=== PATIENT | female | born 1965 | race Caucasian/White ===

== ENCOUNTER 2019-05-31 09:02 | Day surgery (SDC) | payer BC ==
[2019-05-28 11:17] VITALS: BMI 23.9
[~2019-05-31 09:02] MED LIST: LACTATED RINGERS 1,000 ML IV SCH
--- NOTE | 2019-05-31 09:49 | P.GSHP ---
History of Present Illness H&P Date: 05/31/19 Chief Complaint: GERD, screening colonoscopy 54-year-old female who presents today for EGD and screening colonoscopy. She has had issues with GERD. Past Medical History Past Medical History: GERD/Reflux, Hypertension, Osteoarthritis (OA), Thyroid Disorder Additional Past Medical History / Comment(s): Constipation, hiatal hernia. Recent problems with food getting stuck in esophagus and vomiting. History of Any Multi-Drug Resistant Organisms: None Reported Past Surgical History: Cholecystectomy, Tubal Ligation, Uterine Ablation Additional Past Surgical History / Comment(s): Cyst removed from kidney. Past Anesthesia/Blood Transfusion Reactions: Postoperative Nausea & Vomiting (PONV) Additional Past Anesthesia/Blood Transfusion Reaction / Comment(s): Mom and brother PONV. Past Psychological History: No Psychological Hx Reported Smoking Status: Former smoker Past Alcohol Use History: Occasional Additional Past Alcohol Use History / Comment(s): Quit smoking 2 yrs ago, smoked on and off, last time smoked for 5 yrs before quitting. Past Drug Use History: None Reported - Past Family History Mother Family Medical History: No Reported History Medications and Allergies Home Medications Medication Instructions Recorded Confirmed Type Benazepril HCl 40 mg PO QAM 05/28/19 05/31/19 History Cholecalciferol [Vitamin D3 (25 6,000 unit PO DAILY 05/28/19 05/31/19 History Mcg = 1000 Iu)] Meloxicam 15 mg PO DAILY 05/28/19 05/31/19 History Multivitamins, Thera [Multivitamin 1 tab PO DAILY 05/28/19 05/31/19 History (formulary)] Thyroid,Pork [[place] Thyroid] 60 mg PO QAM 05/28/19 05/31/19 History Allergies Allergy/AdvReac Type Severity Reaction Status Date / Time latex Allergy Rash/Hives Verified 05/31/19 09:39 Penicillins Allergy Anaphylaxis Verified 05/31/19 09:39 Surgical - Exam - General well developed, well nourished, no distress - Eyes PERRL - ENT normal pinna - Neck no masses - Respiratory normal expansion - Cardiovascular Rhythm: regular - Abdomen Abdomen: soft, non tender Assessment and Plan Assessment: GERD we'll perform EGD. We'll also perform screening colonoscopy.
[2019-05-31] MEDS ORDERED: DEXAMETHASONE SOD PHOSPHATE 10 MG/ML 1 ML VIAL IV ONE (09:50)
[2019-05-31] MEDS ORDERED: SCOPOLAMINE 1.5MG/72HR PATCH TRANSDERM ONE (09:50)
[2019-05-31] MEDS ORDERED: ONDANSETRON 4 MG/2 ML VIAL IVP ONE (09:50)
[2019-05-31] MEDS ORDERED: LIDOCAINE 1% 20 ML VIAL (10MG/ML) FOR IV START INTRADERMA ONE (09:55)
[2019-05-31] MEDS ORDERED: LIDOCAINE 1% INJ 10MG/ML (20 ML MDV) ONE (09:55)
[2019-05-31] MEDS ORDERED: PROPOFOL 10 MG/ML 20 ML VIAL IV ONE (09:55)
[2019-05-31 09:58] VITALS: TEMP 98
[2019-05-31 10:38] VITALS: RESP 16
[2019-05-31 11:10] VITALS: BP 125/81; PULSE 60
--- NOTE | 2019-05-31 11:40 | P.OP ---
Date of Procedure: 05/31/19 Preoperative Diagnosis: Dysphagia, screening colonoscopy Postoperative Diagnosis: Gastritis Mild esophagitis Normal colon Procedure(s) Performed: EGD Colonoscopy Anesthesia: MAC Surgeon: Johnathon Griffith Pathology: other (Antral, esophagus) Condition: stable Disposition: PACU Description of Procedure: Placed on the endoscopy table lateral position. She received IV suture. The gastro-placed oropharynx and passed into the esophagus and into the stomach. Scope was then placed through the pylorus. The first and second portion of the duodenum appeared normal. Scope was then brought back the antrum and this was mildly inflamed. A biopsies performed. The scope was then retroflexed and the remainder of the stomach appeared normal. There is no significant hiatal hernia seen. The GE junction was at 40 cm. The distal esophagus was minimal inflamed a biopsies performed. The proximal esophagus appeared normal. Scope was withdrawn for patient. Next digital rectal exam was performed which revealed no abnormalities. The flexible colonoscope was then placed patient anus and passed throughout the entire colon. The ileocecal valve was visually's. The cecum, ascending and transverse colon appeared normal. The descending and; appeared normal. Scope was then brought back the rectum and small. Scope was withdrawn for patient. Patient was scheduled for and esophagram upper GI to evaluate her dysphagia.
== END 2019-05-31 11:27 | disposition home or self-care (01) ==
LOC: ORWHC2ENDO 09:02
PROVIDERS: ATTEND Surgery
DX: Z12.11 Encounter for screening for malignant neoplasm of colon (principal); K21.0 Gastro-esophageal reflux disease with esophagitis; K29.50 Unspecified chronic gastritis without bleeding; K44.9 Diaphragmatic hernia without obstruction or gangrene; I10 Essential (primary) hypertension; E07.9 Disorder of thyroid, unspecified; M19.90 Unspecified osteoarthritis, unspecified site; Z91.040 Latex allergy status; Z88.0 Allergy status to penicillin; Z87.891 Personal history of nicotine dependence; Z79.890 Hormone replacement therapy; Z79.899 Other long term (current) drug therapy; Z98.51 Tubal ligation status; Z90.49 Acquired absence of other specified parts of digestive tract; Z98.890 Other specified postprocedural states
CPT/HCPCS: 43239; 88305; G0121; J1100; J2405; J2001; J2704; 45378

== ENCOUNTER → 2019-06-03 | Outpatient (CLI) | payer BC ==
--- NOTE | 2019-06-03 10:58 | FL ---
EXAMINATION TYPE: FL UGI w esophagus DATE OF EXAM: 06/03/2019 COMPARISON: NONE HISTORY: Dysphagia, vomiting, difficulty swallowing solid foods. TECHNIQUE: A single contrast UGI study is performed with Isovue given the recent biopsy. 1 minute an d 26 seconds of fluoroscopy was utilized with 39 fluoroscopic images saved. FINDINGS: Peripatologist image of the abdomen shows no gross abnormality. The esophagus shows normal motility and emptying into the stomach. No evidence of hiatal hernia or s tricture noted. The stomach shows normal distensibility and peristalsis with thickened gastric rugal folds in the ant rum and pylorus. No evidence of any mass or ulcer disease. Very minimal gastroesophageal reflux was seen during real time performance of this study. The duodenal bulb, sweep, and proximal small bowel loops are unremarkable. IMPRESSION: Mildly thickened gastric antrum and pyloric rugal folds most commonly related to mild gas tritis. No hiatal hernia or stricture seen. Very minimal gastroesophageal reflux.
== END | disposition home or self-care (01) ==
LOC: RADUSWWP 09:02
PROVIDERS: ATTEND Surgery
DX: K21.9 Gastro-esophageal reflux disease without esophagitis (principal)
CPT/HCPCS: 74240

== ENCOUNTER → 2020-03-17 | Outpatient (CLI) | payer BC ==
--- NOTE | 2020-03-17 22:25 | MR ---
EXAMINATION TYPE: MR lumbar spine wo/w con DATE OF EXAM: 03/17/2020 COMPARISON: NONE HISTORY: Sharp shooting pain in left hip and leg x5 weeks, xrays at [facility] TECHNIQUE: Multiplanar, multisequence images of the lumbar spine is performed without and with IV contrast, util izing 7 mL intravenous Gadavist FINDINGS: There is levoconvex scoliosis centered at L2-L3 level. Sagittal images of the lumbar spine show vertebral body heights and alignment to appear satisfactory. Multilevel disc desiccation with mi ld disc space narrowing L3-L4 level and L5-S1 level. The conus medullaris is normal in position and signal ending mid to inferior L1 level. 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 Small hemangioma involving L4 vertebra sagittal image 11. No suspicious postcontrast enhancemen t. Axial images show T12-L1 and L1-L2 levels to appear within normal limits. Axial images at L2-L3 level show mild facet arthropathy bilaterally. Axial images at L3-L4 level show mild/moderate facet degenerative changes and ligamentum flavum hyper trophy mildly effacing posterior lateral thecal sac. There is mild broad disc bulge mildly effaces th e anterior thecal sac. Patent bilateral neural foramina. Axial images at the L4-L5 level show moderate facet degenerative changes. There is mild broad-based p osterior disc protrusion. Patent bilateral neural foramina. Axial images at L5-S1 level show [id number] facet degenerative changes bilaterally. There is br oad-based central disc protrusion. Spinal canal is preserved. Mild left-sided neural foraminal narrow ing due to asymmetric increased facet arthropathy on the left. Paraspinal muscle bulk is maintained. There are few subcentimeter round T2 hyperintense lesions scatt ered throughout upper pole level both kidneys consistent with thin-walled cysts without enhancement. IMPRESSION: Scoliosis. Multilevel degenerative changes in the lumbar spine as detailed above. No larg e disc herniation to account for patient's left-sided radiculopathy type symptoms however.
== END | disposition home or self-care (01) ==
LOC: RADMRIMAIN 20:09
PROVIDERS: ATTEND Nurse Practitioner Adult Health
DX: M41.86 Other forms of scoliosis, lumbar region (principal); M47.816 Spondylosis without myelopathy or radiculopathy, lumbar region
CPT/HCPCS: 72158; A9585

== ENCOUNTER 2020-05-02 11:22 | Day surgery (SDC) | payer BC ==
[2020-04-25 16:04] VITALS: BMI 25.5
[2020-05-02 11:49] VITALS: TEMP 97.7
[2020-05-02] MEDS ORDERED: fentaNYL (PF) 50 MCG/ML 2 ML AMP ONE (12:39)
[2020-05-02] MEDS ORDERED: methylPREDNISolone ACETATE 40 MG/ML 1 ML VIAL ONE (12:39)
[2020-05-02] MEDS ORDERED: MIDAZOLAM 2 MG/2 ML VIAL ONE (12:39)
[2020-05-02] MEDS ORDERED: IOPAMIDOL M200 10 ML VIAL ONE (12:39)
[2020-05-02] MEDS ORDERED: ROPIVACAINE 5MG/ML 20ML VIAL ONE (12:39)
[2020-05-02] MEDS ORDERED: IV FLUID CONTINUATION 900 ML IV ONE (12:55)
[2020-05-02 12:59] VITALS: RESP 16
--- NOTE | 2020-05-02 13:08 | P.PCN ---
Date of Procedure: 05/02/20 Procedure(s) Performed: Description of Procedure: PREOPERATIVE DIAGNOSIS:Left hip arthralgia POSTOPERATIVE DIAGNOSIS: same PROCEDURES: left intra-articular hip injection with fluoroscopy (fluoroscopy images available in the radiology Department ) ANESTHESIA: Moderate sedation with versed 2 mg fentanyl 50 mcg EBL: Minimal PROCEDURE INDICATION: The patient with left hip pain secondary , who has been unresponsive to conservative therapy. PROCEDURE DESCRIPTION / TECHNIQUE: The patient was seen and identified in the preoperative area. Risks, benefits, complications, and alternatives were discussed with the patient (including but not limited to incomplete pain relief, bleeding, infection, nerve damage, and allergies to medications), the patient agreed to proceed with the procedure and signed the consent after all questions were answered. Patient was taken to the OR and time out was completed ,, patient placed in supine position and allergies. Pt was placed in the prone position. IV was started. Vital signs remained stable throughout the procedure. The left hip area area was prepped and draped in the usual sterile fashion. Vital signs were closely monitored during the procedure. Conscious sedation was used during the procedure to decrease patients anxiety. Using AP fluoroscopy, the femoral neck was identified, marked, and localized with 1% lidocaine. Subsequently, a 25 gauge 5-inch spinal needle was advanced guided by fluoroscopy to the 10 o'clock position on the femoral neck until the needle was felt entering the hip capsule. Placement confirmed with injection of Isovue, contrast was injected to demonstrate an arthrogram. After negative aspiration for CSF or heme and in the absence of paresthesias, the full 6 ml ml of the block solution containing Depo-Medrol 40 mg and 5 mL of preservative-free 0.5% ropivacaine was injected. At the end of the procedure, the skin was cleansed and bandages were applied. COMPLICATIONS: No acute complications.
[2020-05-02 13:16] VITALS: BP 123/81; PULSE 74
--- NOTE | 2020-05-02 15:48 | FL ---
EXAMINATION TYPE: FL guided pain mgmt statistic DATE OF EXAM: 05/02/2020 CLINICAL HISTORY: Left hip pain. TECHNIQUE: Fluoroscopy. COMPARISON: None. FINDINGS: Fluoroscopic guidance was provided during pain relief procedure performed by Dr. Slater . A total of 7 seconds of fluoroscopic time was utilized during the procedure and two spot images ar e acquired. Images acquired shows needle localization towards the left hip joint from inferior later al approach. IMPRESSION: As Above.
== END 2020-05-02 13:34 | disposition home or self-care (01) ==
LOC: ORPAIN 11:22
PROVIDERS: ATTEND Specialist
DX: M25.552 Pain in left hip (principal); M51.36 Other intervertebral disc degeneration, lumbar region; M47.816 Spondylosis without myelopathy or radiculopathy, lumbar region; Z88.0 Allergy status to penicillin; Z91.040 Latex allergy status; Z98.51 Tubal ligation status
CPT/HCPCS: 20610; J2250; J1030; J3010; Q9966; J2795; 99152

== ENCOUNTER → 2020-06-06 | Outpatient (CLI) | payer BC ==
--- NOTE | 2020-06-06 16:43 | MR ---
EXAMINATION TYPE: MR hip LT wo con DATE OF EXAM: 06/06/2020 COMPARISON: No radiographic correlation is available HISTORY: 55-year-old female with left hip pain, limited movement TECHNIQUE: Multiplanar, multisequence images of the left hip were obtained without IV contrast. FINDINGS: There is end-stage degenerative change of the left greater than right hips. Complete loss of superola teral cartilage and joint space particularly on the left with subchondral geode measuring up to 1.2 c m on the right and extensive marrow edema on both sides of the joint. The left hip labrum is diffusely degenerative and torn with a 3.5 x 1.5 cm paralabral cyst. Small to moderate effusion on the left and physiologic joint fluid on the right. The sacrum and SI joints as well as the pubic symphysis appear intact. No hip fracture or AVN is identified. There is focal marrow edema and adjacent soft tissue swelling at the left anterior inferior iliac spi ne without partial tear involving the origin of the left rectus femoris. Fluid along the proximal tiny tendinous junction and there is some reactive edema within the visualized upper thigh muscle belly. There is some mild edema within the distal left iliopsoas muscle that could represent a mild muscle s train or edema reactive to altered biomechanics. Hamstrings origins and gluteal insertions appear intact. Symmetric course, caliber, and signal intensity of the sciatic nerves. Sigmoid diverticulosis. Uterus is visualized. IMPRESSION: 1. End stage osteoarthrosis of the left greater than right hips with areas of reactive subchondral ma rrow edema. Small to moderate joint effusion on the left likely reactive. The acetabular labrum is al so diffusely degenerative and torn with a 2.5 x 1.5 cm superior paralabral cyst on the left. 2. Note a significant partial tear of the left rectus femoris origin. There is reactive marrow edema at the AIIS, some fluid delaminating along its myotendinous junction, and reactive marrow edema of th e proximal muscle belly in the upper thigh.
== END | disposition home or self-care (01) ==
LOC: RADMRIMAIN 14:04
PROVIDERS: ATTEND Orthopaedic Surgery
DX: M16.0 Bilateral primary osteoarthritis of hip (principal); M25.852 Other specified joint disorders, left hip; S73.102A Unspecified sprain of left hip, initial encounter; S73.192A Other sprain of left hip, initial encounter

== ENCOUNTER → 2020-07-11 | Outpatient (CLI) | payer BC | END | disposition home or self-care (01) | LOC: LABWHC1 10:40 | PROVIDERS: ATTEND Orthopaedic Surgery | DX: Z01.812 Encounter for preprocedural laboratory examination (principal) | CPT/HCPCS: 87070 ==

== ENCOUNTER → 2020-07-28 | Outpatient (CLI) | payer BC ==
[2020-07-28 11:52] LABS: Appearance,Urine Clear (Clear); Bilirubin,Urine Negative (Negative); Blood,Urine Negative (Negative); Color,Urine Light Yellow; Glucose,Urine (UA) Negative (Negative); HCT 43.2 % (34.0-46.0); HGB 14.9 gm/dL (11.4-16.0); Ketones,Urine Negative (Negative); Leukocyte Esterase,Urine Negative (Negative); MCH 33.2 pg (25.0-35.0); MCHC 34.6 g/dL (31.0-37.0); MCV 95.9 fL (80.0-100.0); Mean Platelet Volume 6.9; Nitrite,Urine Negative (Negative); PH, Urine 5.5 (5.0-8.0); Platelet Count 297 k/uL (150-450); Protein,Urine Negative (Negative); RDW 11.7 % (11.5-15.5); Specific Gravity,Urine 1.002 (1.001-1.035); Urobilinogen,Urine <2.0 mg/dL (<2.0); WBC 5.9 k/uL (3.8-10.6)
[2020-07-28 12:08] LABS: African American GFR (CKD) >90 (>60 ml/min/1.73 sqM); Anion Gap 5 mmol/L; Blood Urea Nitrogen 19 mg/dL (7-17); Carbon Dioxide 28 mmol/L (22-30); Chloride 104 mmol/L (98-107); Glucose 86 mg/dL (74-99); Potassium 4.5 mmol/L (3.5-5.1); Sodium 137 mmol/L (137-145)
[2020-07-28 12:09] LABS: ALT 16 U/L (4-34); AST 26 U/L (14-36); Albumin 4.4 g/dL (3.5-5.0); Alkaline Phosphatase 55 U/L (38-126); Calcium 9.7 mg/dL (8.4-10.2); Non-African American GFR(CKD) >90 (>60 ml/min/1.73 sqM); Total Bilirubin 0.5 mg/dL (0.2-1.3); Total Protein 6.9 g/dL (6.3-8.2)
[2020-07-28 12:13] LABS: INR 0.9 (<1.2); Partial Thromboplastin Time 23.2 sec (22.0-30.0); Prothrombin Time 9.8 sec (9.0-12.0)
== END | disposition home or self-care (01) ==
LOC: LABPAT 11:05
PROVIDERS: ATTEND Orthopaedic Surgery
DX: Z01.818 Encounter for other preprocedural examination (principal); M16.12 Unilateral primary osteoarthritis, left hip
CPT/HCPCS: 36415; 80053; 81003; 85027; 85610; 85730; 86850; 86900; 86901

== ENCOUNTER 2020-08-07 07:42 | Observation (INO) | payer BC ==
[2020-07-31 11:51] VITALS: BMI 25.7
[~2020-08-07 07:42] MED LIST changes: +ACETAMINOPHEN TAB 500 MG TAB PO PRN; +GABAPENTIN 300 MG CAP PO PRN; +HYDROmorphone 0.5 MG/0.5 ML SYRINGE IVP PRN; -LACTATED RINGERS 1,000 ML IV SCH; +LIDOCAINE 1% (10MG/ML) FOR IV START INTRADERMA PRN; +MELOXICAM 7.5 MG TAB PO PRN; +TRANEXAMIC ACID 1,000 MG in SODIUM CHLORIDE 0.9% 100 ML IVPB PRN; +VANCOMYCIN 1,250 MG in SODIUM CHLORIDE 0.9% 250 ML IVPB PRN
[2020-08-07] MEDS ORDERED: ONDANSETRON 4 MG/2 ML VIAL ONE (08:12)
[2020-08-07] MEDS: LACTATED RINGERS 1,000 ML IV SCH (08:21)
[2020-08-07] MEDS ORDERED: DEXAMETHASONE SOD PHOSPHATE 4 MG/ML 1 ML VIAL IV ONE (08:22)
[2020-08-07] MEDS ORDERED: HYDROmorphone 1 MG/ML 1 ML SYRINGE IVP PRN (08:33)
[2020-08-07] MEDS ORDERED: MAGNESIUM HYDROXIDE 2,400 MG/10 ML CUP PO PRN (08:33)
[2020-08-07] MEDS ORDERED: hydrOXYzine pamoate 25 MG CAP PO PRN (08:33)
[2020-08-07] MEDS ORDERED: NALOXONE 0.4 MG/ML 1 ML VIAL IV PRN (08:33)
[2020-08-07] MEDS ORDERED: ONDANSETRON 4 MG/2 ML VIAL IVP PRN (08:33)
[2020-08-07] MEDS ORDERED: diazePAM 5 MG TAB PO PRN (08:33)
[2020-08-07] MEDS ORDERED: HYDROmorphone 0.5 MG/0.5 ML SYRINGE IVP PRN (08:33)
[2020-08-07] MEDS ORDERED: HYDROmorphone 0.2 MG/1 ML SYRINGE IVP PRN (08:33)
[2020-08-07] MEDS ORDERED: HYDROcodone/APAP 7.5-325MG 1 EACH TAB PO PRN (08:38)
[2020-08-07] MEDS ORDERED: HEPARIN SODIUM,PORCINE 10,000 UNIT/ML 1 ML VIAL ONE (08:50)
[2020-08-07] MEDS ORDERED: SODIUM CHLORIDE 0.9% IRRIG 1,000 ML BTL IRRIGATION ONE (08:50)
[2020-08-07] MEDS: ROPIVACAINE/EPI/CLONIDINE/KET 50 ML SYRINGE MISCELLANE PRN ×2 (09:14→09:56)
--- NOTE | 2020-08-07 10:03 | P.OP ---
Date of Procedure: 08/07/20 Preoperative Diagnosis: Severe osteoarthritis left hip Postoperative Diagnosis: Severe osteoarthritis left hip Procedure(s) Performed: Left total hip arthroplasty with a direct anterior approach Implants: [employer] Polarstem standard size 2 [employer] R3, 3 hole hemispherical acetabular shell, 48 mm [employer] Reflection 6.5 mm cancellus screw, 20 mm, 25 mm [employer] R3, XLPE 20 acetabular liner [employer] Oxinium femoral head 32 m, +4 All components were press-fit. The articulation is Oxinium on polyethylene. Anesthesia: spinal Surgeon: Fred Villarreal Credit Charge Authorizer #1: Arabella Archuleta Estimated Blood Loss (ml): 180 (70 mL returned with Cell Saver) Pathology: other (Femoral head) Condition: stable Disposition: PACU Indications for Procedure: After failure of conservative treatment we discussed the surgical and nonsurgical treatment options at length. Patient wishes to proceed with a total hip arthroplasty with a direct anterior approach. Complications specific to this procedure were discussed at length, including but not limited to infection, leg length discrepancy, dislocation, nerve injury, and fracture. Covid-19 was also discussed at length with the patient, and they are aware of the current policies and procedures. The patient was given the option of delaying surgery, but they elect to proceed knowing these risks. Patient is aware of all these complications and informed consent was obtained Operative Findings: The operative findings are consistent with severe osteoarthritis of the left hip Description of Procedure: Patient was seen and evaluated in the preoperative area and the consent was reviewed. The operative site was marked with a skin marker. The patient was then brought to the operating room and given preoperative antibiotics intravenously. 1 g of Tranexamic acid was also given intravenously. A spinal anesthetic was administered by the anesthesia department. The patient was then placed on the Norco table with the bony prominences well-padded. The hip area was then prepped with a ChloraPrep solution and draped in the usual sterile fashion. A universal timeout was then performed, which confirmed the patient's name, surgical site, ALLERGIES, and procedure being performed on the consent. Next the incision site was located at 1 cm distal to the anterior superior iliac spine along the flexion crease of the hip. The skin and subcutaneous tissues were sharply incised. Incision was carefully dissected down to the fascia overlying the tensor fascia rey muscle. This fascia was then incised in line with the incision. Care was taken to stay laterally in order to avoid injuring the lateral femoral cutaneous nerve. Next, using blunt finger dissection, the tensor fascia rey muscle was dissected off its investing fascia. The muscle was then carefully retracted laterally with a cobra retractor over the lateral neck of the femur. Next, the circumflex vessels were identified and cauterized using the AquaMantis device. The anterior hip capsule was then exposed. The capsule was then opened and an inverted T fashion. Cobra retractors were then placed intracapsularly. The retractors were maintained intracapsular throughout the procedure. The proximal femur was then visualized. A small amount of traction was placed on the leg. The femoral neck was then osteotomized appropriate level above the lesser trochanter. A small wedge of bone was then removed from the remaining femoral head. Next, using a corkscrew the femoral head was removed from the acetabulum. On gross visual inspection, the femoral head had complete loss of articular cartilage and multiple periarticular osteophytes. The femoral head was then measured. Attention was then turned to the acetabulum. The acetabulum was exposed and any remaining labrum was excised. Sequential reaming of the acetabulum was performed using fluoroscopic guidance until there was a good bed of bleeding cancellus bone. When the appropriate size was reached, a trial was then placed. The position and fit of the trial was checked with fluoroscopy. The trial was then removed. Then, using fluoroscopic guidanc e, the final implant was impacted at 20 of anteversion and 40 of abduction, and fully seated in the acetabulum. 2 screws were then placed in the acetabulum. Again fluoroscopy was used to check position of the screws. Next, the liner was then impacted, with a 20 elevated liner located in the anterior superior quadrant. Component locking was confirmed. Attention was then directed to the femur. With the aid of the Norco table, the femur was externally rotated to approximately 130, extended, and adducted under the opposite leg. A side hook was then placed under the proximal femur, and the side hook elevator was used to elevate the proximal femur while releasing the capsule. Retractors were then placed. A capsular release was performed, as well as a release of the conjoined tendon, which afforded excellent visualization of the proximal femur. Next, a box osteotome was used to lateralize the proximal femur. A assistant merchandiser was then used to locate the femoral canal. Sequential broaching was then performed with appropriate size which afforded excellent fixation in the proximal femur. A trial was then placed with appropriate head and neck, and the hip was gently reduced with the aid of the Norco table. Fluoroscopy was then used to check position of the components, as well as to ensure equal leg lengths. The hip was then gently dislocated and the trials were then removed. Final implants were then impacted and the hip was again reduced. Final fluoroscopic x-rays confirmed that the components were in anatomic position, as well as equal leg lengths. The hip was also taken through range of motion, and found to be stable. The hip was then copiously irrigated with antibiotic solution with pulsatile lavage. The hip was then irrigated with Irrisept solution. The soft tissues were then injected with a ropivacaine solution, which consisted of 246.25 mg of ropivacaine, 0.5 mg of epinephrine, 30 mg of Toradol, 80 g of clonidine, and 48.45 mL of sterile water, for a total of 100 mL of fluid injected. A second dose of 1 g of Tranexamic acid was also given intravenously. Any blood collected by Cell Saver was then returned to the patient at this time. The fascia was then closed with 2-0 strata fix suture. The subcutaneous tissue was closed with 3-0 Vicryl. The subcuticular tissue was closed with 3-0 strata fix suture. The skin was then closed with Exofin skin glue. After the glue and dried, and Optifoam silver impregnated dressing was applied. The patient was then transferred to the recovery room in stable condition. The commercial escrow assistant LALO Webb was required due to the complexity of surgery, and the need for skilled surgical oncologist for positioning, draping, exposure, retraction, and closure of the wound.
--- NOTE | 2020-08-07 11:18 | XR ---
EXAMINATION TYPE: XR Hip Limited LT DATE OF EXAM: 08/07/2020 COMPARISON: Correlation MRI 06/06/2020 HISTORY: 55-year-old female status post hip surgery, assess cervical alignment TECHNIQUE: Single portable AP view FINDINGS: Image shows placement of left hip total arthroplasty. Both the acetabular cup and femoral stem compon ents of the prosthesis are well seated without periprosthetic fracture. Alignment grossly anatomic. S ome scattered soft tissue air relates to the recent operation. IMPRESSION: Uncomplicated postoperative appearance left total hip arthroplasty.
--- NOTE | 2020-08-07 11:33 | XR ---
EXAMINATION TYPE: XR Hip Limited LT, FL fluoroscopy <1hr DATE OF EXAM: 08/07/2020 COMPARISON: NONE HISTORY: 55-year-old female anteriorly left hip replacement FINDINGS: 2 intraoperative fluoroscopic images during left hip total arthroplasty. FLUOROSCOPY Fluoroscopy time of 16 seconds was used during left anterior hip replacement. 2 image/s document/ s the procedure. IMPRESSION: Interoperative fluoroscopy as above.
--- NOTE | 2020-08-07 14:22 | P.CONS ---
History of Present Illness - Reason for Consult Consult date: 08/07/20 Medical management - History of Present Illness This is a 55-year-old white female who was admitted to the hospital and had Left total hip arthroplasty with a direct anterior approach. She is postop, she feels okay, no chest pain no abdominal pain no nausea no vomiting no dizziness. Patient's family at bedside. Review of Systems 10 systems reviewed, pertinent positive and negative findings as in HPI. No chest pain no abdominal pain. Past Medical History Past Medical History: GERD/Reflux, Hypertension, Osteoarthritis (OA), Thyroid Disorder Additional Past Medical History / Comment(s): Constipation, hiatal hernia. Recent problems with food getting stuck in esophagus and vomiting,vertigo History of Any Multi-Drug Resistant Organisms: None Reported Past Surgical History: Cholecystectomy, Tubal Ligation, Uterine Ablation Additional Past Surgical History / Comment(s): Cyst removed from kidney. PAIN CLINIC PROCEDURE, COLONOSCOPY/EGD Past Anesthesia/Blood Transfusion Reactions: Motion Sickness, Postoperative Nausea & Vomiting (PONV) Additional Past Anesthesia/Blood Transfusion Reaction / Comm: Mom and brother PONV. pt states "after my upper and lower gi had general anesthetic took 1 week to get it out of system" Smoking Status: Current every day smoker - Past Family History Mother Family Medical History: No Reported History Medications and Allergies Home Medications Medication Instructions Recorded Confirmed Type Benazepril HCl 40 mg PO QAM 05/28/19 07/31/20 History Cholecalciferol [Vitamin D3 (25 6,000 unit PO DAILY 05/28/19 07/31/20 History Mcg = 1000 Iu)] Meloxicam 15 mg PO DAILY 05/28/19 07/31/20 History Multivitamins, Thera [Multivitamin 1 tab PO DAILY 05/28/19 07/31/20 History (formulary)] Thyroid,Pork [[place] Thyroid] 60 mg PO QAM 05/28/19 07/31/20 History traMADol HCL [Ultram] 50 mg PO Q4-6H PRN 07/31/20 07/31/20 History Aspirin 325 mg PO BID #60 tab 08/07/20 Rx HYDROcodone/APAP 7.5-325MG [[place] 1 - 2 tab PO Q6H PRN #32 tab 08/07/20 Rx 7.5-325] Sennosides [Senokot] 2 tab PO DAILY PRN #60 tablet 08/07/20 Rx Allergies Allergy/AdvReac Type Severity Reaction Status Date / Time latex Allergy Rash/Hives Verified 08/07/20 08:02 Penicillins Allergy Anaphylaxis Verified 08/07/20 08:02 Physical Exam Vitals: Vital Signs Temp Pulse Pulse Resp BP Pulse Ox 08/07/20 12:29 81 16 106/66 97 08/07/20 12:00 77 16 101/65 96 08/07/20 11:29 75 16 102/63 93 L 08/07/20 11:14 71 16 112/66 95 08/07/20 10:59 82 16 104/63 95 08/07/20 10:44 79 16 105/65 95 08/07/20 10:30 76 16 119/74 96 08/07/20 10:19 97.4 F L 82 16 117/72 96 08/07/20 08:17 98.6 F 103 H 157/89 95 Intake and Output 08/06/20 08/07/20 08/07/20 22:59 06:59 14:59 Intake Total 1150 Output Total 180 Balance 970 Intake: IV 1150 Output: Estimated Blood Loss 180 Other: Weight 75.1 kg Constitutional: No acute distress, conversant, pleasant Eyes: Anicteric sclerae, moist conjunctiva, no lid-lag, PERRLA ENMT: NC/AT Neck:Supple, FROM, no masses, or JVD Lungs: Clear to auscultation, Clear to percussion, Normal respiratory effort, no accessory muscle use Cardiovascular: Heart regular in rate and rhythm, No murmurs, gallops, or rubs no peripheral edema Abdominal: Soft Nontender, non distended, no guarding, no rebound or rigidity Skin: Normal temperature, tone, texture Extremities:No digital cyanosis No clubbing, Pedal pulses intact and symmetrical Radial pulses intact and symmetrical Normal gait and station, No calf tenderness Psychiatric: Alert and oriented to person, place and time, Appropriate affect Intact judgement Neuro: Cranial nerves II-XII grossly intact. No focal sensory deficits Assessment and Plan Assessment: 1. Left hip pain: Status post Left total hip arthroplasty with a direct anterior approach, orthopnea following. Pain control as indicated. 2. Hypothyroidism: Continue [place] Thyroid 3. Essential hypertension: Continue benazepril 4. Osteoarthritis: Supportive care Thank you for the consultation
[2020-08-07] MEDS: CLINDAMYCIN 900 MG in DEXTROSE 5% IN WATER 50 ML IVPB SCH ×2 (15:43)
[2020-08-07] MEDS: SODIUM CHLORIDE 0.9% 1,000 ML IV SCH (15:51)
[2020-08-07] MEDS: HYDROcodone/APAP 7.5-325MG 1 EACH TAB PO PRN (19:51)
[2020-08-07] MEDS: ASPIRIN 325 MG TAB PO SCH (20:13)
[2020-08-07] MEDS ORDERED: SENNOSIDES-DOCUSATE SODIUM 1 EACH TAB PO SCH (21:00)
[2020-08-08] MEDS: CLINDAMYCIN 900 MG in DEXTROSE 5% IN WATER 50 ML IVPB SCH ×2
[2020-08-08] MEDS: HYDROcodone/APAP 7.5-325MG 1 EACH TAB PO PRN ×2 (04:07→10:16)
[2020-08-08] MEDS: SODIUM CHLORIDE 0.9% 1,000 ML IV SCH (04:08)
[2020-08-08 06:21] VITALS: BP 116/76; PULSE 88; RESP 18; TEMP 97.8
[2020-08-08] MEDS ORDERED: THYROID, PORK 30 MG TAB PO SCH (06:30)
[2020-08-08 07:14] LABS: Basophils % (A) 0 %; Eosinophils # (A) 0.3 k/uL (0-0.7); Eosinophils % (A) 3 %; HCT 33.2 % (34.0-46.0); Lymphocytes # (A) 1.4 k/uL (1.0-4.8); Lymphocytes % (A) 16 %; MCH 33.3 pg (25.0-35.0); MCHC 34.8 g/dL (31.0-37.0); MCV 95.9 fL (80.0-100.0); Mean Platelet Volume 7.2; Monocytes # (A) 0.5 k/uL (0-1.0); Monocytes % (A) 6 %; Neutrophils # (A) 6.3 k/uL (1.3-7.7); Platelet Count 252 k/uL (150-450); RBC 3.46 m/uL (3.80-5.40); RDW 11.8 % (11.5-15.5); WBC 8.5 k/uL (3.8-10.6)
[2020-08-08 07:19] LABS: HGB 11.5 gm/dL (11.4-16.0)
[2020-08-08] MEDS: ASPIRIN 325 MG TAB PO SCH (07:42)
[2020-08-08] MEDS: LACTATED RINGERS 1,000 ML IV SCH (07:44)
[2020-08-08] MEDS ORDERED: MIDAZOLAM 2 MG/2 ML VIAL ONE (08:50)
[2020-08-08] MEDS ORDERED: fentaNYL (PF) 50 MCG/ML 2 ML AMP ONE (08:50)
[2020-08-08] MEDS ORDERED: PROPOFOL 10 MG/ML 20 ML VIAL IV ONE (08:50)
[2020-08-08] MEDS ORDERED: MELOXICAM 7.5 MG TAB PO SCH (09:00)
[2020-08-08] MEDS ORDERED: lisinopriL 20 MG TAB PO SCH (09:00)
--- NOTE | 2020-08-08 09:17 | P.DS ---
Providers Date of admission: 08/07/20 23:11 Expected date of discharge: 08/08/20 Attending physician: Fred Villarreal Consults: 08/07/20 08:33 Consult Physician Routine Consulting Provider: Sonam Logan Consult Reason/Comments: medical management Do you want consulting provider notified?: Yes Primary care physician: Jesus Avina MD - Discharge Diagnosis(es) (1) Osteoarthritis of left hip Current Visit: Yes Status: Acute (2) S/P total hip arthroplasty Current Visit: Yes Status: Acute Hospital Course: This is a 55-year-old female with known history of degenerative arthritis of the left hip. The patient presented for evaluation as an outpatient. After discussion and consideration patient elects to proceed with total hip arthroplasty. The patient is seen preoperatively by Dr. Villarreal and medically cleared for surgery by their primary care physician. Patient is admitted to [facility] on 08/07/2020 for total hip arthroplasty. The procedure is performed without complication or sequelae. The patient is doing well postoperatively. Labs and vital signs are stable on day of discharge. On day of discharge patient's hip incision is healing well. There is minimal erythema. There is no drainage noted at this time. There is minimal soft tissue swelling to the hip and thigh. Patient has full foot and ankle motion without difficulty or pain. Calf is soft and nontender to palpation. Neurovascular status to the left lower extremity is intact. Patient is discharged home in good condition. Opioid start talking form is reviewed and signed. Please see med rec for accurate list of home medications. Plan - Discharge Summary Discharge Rx Participant: Yes New Discharge Prescriptions: New HYDROcodone/APAP 7.5-325MG [[place] 7.5-325] 1 - 2 tab PO Q6H PRN #32 tab PRN Reason: Pain Aspirin 325 mg PO BID #60 tab Sennosides [Senokot] 2 tab PO DAILY PRN #60 tablet PRN Reason: Constipation No Action Cholecalciferol [Vitamin D3 (25 Mcg = 1000 Iu)] 6,000 unit PO DAILY Thyroid,Pork [[place] Thyroid] 60 mg PO QAM Multivitamins, Thera [Multivitamin (formulary)] 1 tab PO DAILY Meloxicam 15 mg PO DAILY Benazepril HCl 40 mg PO QAM traMADol HCL [Ultram] 50 mg PO Q4-6H PRN PRN Reason: Pain Discharge Medication List Benazepril HCl 40 mg PO QAM 05/28/19 [History] Cholecalciferol [Vitamin D3 (25 Mcg = 1000 Iu)] 6,000 unit PO DAILY 05/28/19 [History] Meloxicam 15 mg PO DAILY 05/28/19 [History] Multivitamins, Thera [Multivitamin (formulary)] 1 tab PO DAILY 05/28/19 [History] Thyroid,Pork [[place] Thyroid] 60 mg PO QAM 05/28/19 [History] traMADol HCL [Ultram] 50 mg PO Q4-6H PRN 07/31/20 [History] Aspirin 325 mg PO BID #60 tab 08/07/20 [Rx] HYDROcodone/APAP 7.5-325MG [[place] 7.5-325] 1 - 2 tab PO Q6H PRN #32 tab 08/07/20 [Rx] Sennosides [Senokot] 2 tab PO DAILY PRN #60 tablet 08/07/20 [Rx] Follow up Appointment(s)/Referral(s): [facility], [NON-STAFF] - As Needed Fred Villarreal DO [Doctor of Osteopathic Medicine] - 2 Weeks Activity/Diet/Wound Care/Special Instructions: Weightbearing as tolerated with walker. Leave dressing intact. Dressing may be removed by home care nurse or by patient in 10 days. May shower with dressing on. If the dressing becomes wet, please remove. Please take aspirin 325mg twice daily for 30 days to prevent blood clots. Recommend use of compression stockings daily until follow up to help prevent swelling and blood clots. May remove at night before sleeping. Please follow-up with [facility] in 2 weeks and call with any questions or concerns, . Discharge Disposition: HOME WITH HOME HEALTH SERVICES
--- NOTE | 2020-08-08 11:31 | P.PN ---
Subjective Progress Note Date: 08/08/20 Feels okay, no chest pain or abdominal pain no nausea no vomiting no dizziness, no shortness of breath Objective - Vital Signs Vital signs: Vital Signs Temp 97.8 F 08/08/20 05:30 Pulse 88 08/08/20 05:30 Resp 18 08/08/20 05:30 BP 116/76 08/08/20 05:30 Pulse Ox 95 08/08/20 05:30 Intake & Output 08/07/20 08/08/20 08/08/20 18:59 06:59 18:59 Intake Total 1390 Output Total 180 Balance 1210 Weight 75.1 kg Intake: IV 1150 Oral 240 Output: Estimated Blood Loss 180 Other: Voiding Method Toilet # Voids 1 2 - Exam Constitutional: No acute distress, conversant, pleasant Eyes: Anicteric sclerae, moist conjunctiva, no lid-lag, PERRLA ENMT: NC/AT Neck:Supple, FROM, no masses, or JVD Lungs: Clear to auscultation, Clear to percussion, Normal respiratory effort, no accessory muscle use Cardiovascular: Heart regular in rate and rhythm, No murmurs, gallops, or rubs no peripheral edema Abdominal: Soft Nontender, non distended, no guarding, no rebound or rigidity Skin: Normal temperature, tone, texture Extremities:No digital cyanosis No clubbing Psychiatric: Alert and oriented to person, place and time, Appropriate affect Intact judgement Neuro: Cranial nerves II-XII grossly intact. No focal sensory deficits - Labs CBC & Chem 7: 08/08/20 05:43 Labs: Abnormal Lab Results - Last 24 Hours (Table) 08/08/20 Range/Units 05:43 RBC 3.46 L (3.80-5.40) m/uL Hct 33.2 L (34.0-46.0) % Assessment and Plan Assessment: 1. Left hip pain: Status post Left total hip arthroplasty with a direct anterior approach, orthopnea following. Pain control as indicated. Postop day 1 2. Hypothyroidism: Continue [place] Thyroid 3. Essential hypertension: Continue benazepril 4. Osteoarthritis: Supportive care
== END 2020-08-08 12:20 | disposition home health service (06) ==
LOC: OR 07:42 → 5NMEDONC 10:19 → OR 23:11 → 5NMEDONC 23:11
PROVIDERS: ADMIT Orthopaedic Surgery; ATTEND Orthopaedic Surgery
DX: M16.12 Unilateral primary osteoarthritis, left hip (principal); I10 Essential (primary) hypertension; E03.9 Hypothyroidism, unspecified; K21.9 Gastro-esophageal reflux disease without esophagitis; K44.9 Diaphragmatic hernia without obstruction or gangrene; R26.81 Unsteadiness on feet; K59.00 Constipation, unspecified; F17.210 Nicotine dependence, cigarettes, uncomplicated; Z20.822 Contact with and (suspected) exposure to COVID-19; Z79.1 Long term (current) use of non-steroidal anti-inflammatories (NSAID); Z79.890 Hormone replacement therapy; Z79.891 Long term (current) use of opiate analgesic; Z79.899 Other long term (current) drug therapy; Z91.040 Latex allergy status; Z88.0 Allergy status to penicillin; Z90.49 Acquired absence of other specified parts of digestive tract; Z98.51 Tubal ligation status; Z87.448 Personal history of other diseases of urinary system; Z97.3 Presence of spectacles and contact lenses; Z98.890 Other specified postprocedural states; Z84.89 Family history of other specified conditions
CPT/HCPCS: 27130; 97110; 97161; 97535; 97165; 86891; 85025; 88300; 87635; 76000; 73501; G0378; P9022; C1776; J2250; J3370; J1644; J1100; J2405 ×2; J3010; J1170 ×2; J2704; 86850; 86900; 86901

== ENCOUNTER → 2021-06-12 | Outpatient (CLI) | payer OTHER ==
--- NOTE | 2021-06-12 15:09 | EST ---
EXERCISE STRESS AGE: 56 SEX: F HT: 5'7" WT: 178 lbs. PROTOCOL: Celso STAGE: 3 DURATION OF EXERCISE: 6:28 HEART RATE REST: 87 BLOOD PRESSURE REST: 143/99 MAXIMUM HEART RATE ACHIEVED: 179 MAXIMUM BLOOD PRESSURE: 194/100 85% MPHR: 139 100% MPHR: 163 METS: 7.7 INDICATIONS: Abnormal ECG. CLINICAL INFORMATION: Baseline rhythm is sinus mechanism, rate of 87, normal axis and intervals. Normal echocardiogram. Baseline blood pressure 143/99 mmHg. Patient exercised on Celso protocol for 6 minutes 28 seconds, reaching a peak rate of 179 beats per minute, which is equal to 100% of maximum predicted heart rate. Peak blood pressure 195/94 mmHg. Test was terminated secondary to fatigue. There was no chest pain. Electrocardiograph monitoring revealed rare PVCs. There was no evidence of diagnostic ischemic ST deviation. CONCLUSION: 1. Average exercise tolerance with rare PVCs. 2. Normal stress electrocardiogram with no evidence of stress-induced ischemia. MMODL / IJN: [id number] /
== END | disposition home or self-care (01) ==
LOC: RADNMMAIN 08:33
PROVIDERS: ATTEND Family Medicine
DX: I49.3 Ventricular premature depolarization (principal)
CPT/HCPCS: 93017

== ENCOUNTER → 2022-03-04 | Outpatient (CLI) | payer OTHER ==
[2022-03-04 10:39] LABS: INR 0.9 (<1.2); Partial Thromboplastin Time 23.7 sec (22.0-30.0)
[2022-03-04 14:20] LABS: HCT 41.9 % (37.2-46.3); HGB 14.4 g/dL (12.0-15.0); MCH 31.5 pg (27.0-32.0); MCHC 34.4 g/dL (32.0-37.0); MCV 91.7 fL (80.0-97.0); Mean Platelet Volume 9.4 fL (9.5-12.2); NRBC Per 100 WBC 0 /100 WBCS (0.0-0.0); Platelet Count 331 X 10*3/uL (140-440); RBC 4.57 X 10*6/uL (4.10-5.20); WBC 5.49 X 10*3/uL (4.50-10.00)
[2022-03-04 16:14] LABS: African American GFR (CKD) 112.2 (60.0-200.0); Albumin 4.8 g/dL (3.8-4.9); Albumin/Globulin Ratio 2.32 (1.60-3.17); Anion Gap 10.3 mmol/L (10.00-18.00); BUN/Creat Ratio 21.87 Ratio (12.00-20.00); Calcium 10.1 mg/dL (8.7-10.3); Carbon Dioxide 26.8 mmol/L (20.0-27.5); Globulin 2.1 g/dL (1.6-3.3); Non-African American GFR(CKD) 96.8 (60.0-200.0); Potassium 4.3 mmol/L (3.5-5.5); Total Bilirubin 0.4 mg/dL (0.30-1.20); Total Protein 6.9 g/dL (6.2-8.2)
[2022-03-04 17:52] LABS: Appearance,Urine Clear (Clear); Bilirubin,Urine Negative (Negative); Blood,Urine Negative (Negative); Color,Urine Yellow (Yellow); Ketones,Urine Negative (Negative); Nitrite,Urine Negative (Negative); PH, Urine 5.5 (5.0-8.0); Specific Gravity,Urine 1.012 (1.001-1.030); Urobilinogen,Urine 0.2 (0.2,1.0)
== END | disposition home or self-care (01) ==
LOC: LABPAT 09:38
PROVIDERS: ATTEND Orthopaedic Surgery
DX: Z01.812 Encounter for preprocedural laboratory examination (principal); M16.11 Unilateral primary osteoarthritis, right hip
CPT/HCPCS: 80053; 81003; 85027; 85610; 85730; 87070

== ENCOUNTER 2022-03-12 11:30 | Observation (INO) | payer OTHER ==
[2022-03-08 09:18] VITALS: BMI 28.5
[~2022-03-12 11:30] MED LIST changes: +HYDROcodone/APAP 7.5-325MG 1 EACH TAB PO PRN; +HYDROmorphone 1 MG/ML 1 ML SYRINGE IVP PRN; +MAGNESIUM HYDROXIDE 2,400 MG/10 ML CUP PO PRN; +NALOXONE 0.4 MG/ML 1 ML VIAL IV PRN; +ONDANSETRON 4 MG/2 ML VIAL IVP ONE; +ONDANSETRON 4 MG/2 ML VIAL IVP PRN; -TRANEXAMIC ACID 1,000 MG in SODIUM CHLORIDE 0.9% 100 ML IVPB PRN; +TRANEXAMIC ACID IN NACL,ISO-OS 1,000 MG in SALINE 1 100ML.BAG IVPB PRN; -VANCOMYCIN 1,250 MG in SODIUM CHLORIDE 0.9% 250 ML IVPB PRN
[2022-03-12] MEDS: LACTATED RINGERS 1,000 ML IV SCH (11:53)
[2022-03-12] MEDS ORDERED: DEXAMETHASONE SOD PHOSPHATE 4 MG/ML 1 ML VIAL IVP ONE (12:20)
[2022-03-12] MEDS ORDERED: PHENYLEPHRINE-0.9% NACL SYG 1,000 MCG/10 ML SYRINGE ONE (13:08)
[2022-03-12] MEDS ORDERED: PROPOFOL 10 MG/ML 20 ML VIAL IV ONE (13:08)
[2022-03-12] MEDS ORDERED: MIDAZOLAM 2 MG/2 ML VIAL ONE (13:08)
[2022-03-12] MEDS ORDERED: fentaNYL (PF) 50 MCG/ML 2 ML AMP ONE (13:08)
[2022-03-12] MEDS ORDERED: ePHEDrine 50 MG/ML 1 ML VIAL ONE (13:08)
[2022-03-12] MEDS ORDERED: TRANEXAMIC ACID IN NACL,ISO-OS 1,000 MG/100 ML BAG ONE (13:08)
[2022-03-12] MEDS ORDERED: ceFAZolin 1,000 MG in SODIUM CHLORIDE 0.9% 1,000 ML IRRIGATION ONE (13:13)
[2022-03-12] MEDS ORDERED: ROPIVACAINE 5 MG/ML 30 ML VIAL MISCELLANE ONE ×2 (13:40→14:13)
[2022-03-12] MEDS ORDERED: LACTATED RINGERS 1,000 ML IV ONE (14:14)
--- NOTE | 2022-03-12 14:23 | P.OP ---
Date of Procedure: 03/12/22 Preoperative Diagnosis: Severe osteoarthritis right hip Postoperative Diagnosis: Osteoarthritis right hip Procedure(s) Performed: Right total arthroplasty with a direct anterior approach Implants: [employer] Polarstem standard size 3 [employer] R3, 3 hole hemispherical acetabular shell, 48 mm [employer] Reflection 6.5 mm cancellus screw, 20 mm 2 [employer] R3, XLPE 20 acetabular liner [employer] Oxinium femoral head 32 m, +0 All components were press-fit. The articulation is Oxinium on polyethylene. Anesthesia: spinal Surgeon: Fred Villarreal Sales Representative Graphic Art #1: Arabella Archuleta Estimated Blood Loss (ml): 300 Pathology: other (Femoral head) Condition: stable Disposition: PACU Indications for Procedure: After failure of conservative treatment we discussed the surgical and nonsurgical treatment options at length. Patient wishes to proceed with a total hip arthroplasty with a direct anterior approach. Complications specific to this procedure were discussed at length, including but not limited to infection, leg length discrepancy, dislocation, nerve injury, and fracture. Covid-19 was also discussed at length with the patient, and they are aware of the current policies and procedures. The patient was given the option of delaying surgery, but they elect to proceed knowing these risks. Patient is aware of all these complications and informed consent was obtained Operative Findings: The operative findings are consistent with severe osteoarthritis of the right hip Description of Procedure: Patient was seen and evaluated in the preoperative area and the consent was reviewed. The operative site was marked with a skin marker. The patient was then brought to the operating room and given preoperative antibiotics intraven ously. 1 g of Tranexamic acid was also given intravenously. A spinal anesthetic was administered by the anesthesia department. The patient was then placed on the [place] table with the bony prominences well-padded. The hip area was then prepped with a ChloraPrep solution and draped in the usual sterile fashion. A universal timeout was then performed, which confirmed the patient's name, surgical site, ALLERGIES, and procedure being performed on the consent. Next the incision site was located at 1 cm distal and 2 cm lateral to the anterior superior iliac spine. The skin and subcutaneous tissues were sharply incised. Incision was carefully dissected down to the fascia overlying the tensor fascia rey muscle. This fascia was then incised in line with the incision. Care was taken to stay laterally in order to avoid injuring the lateral femoral cutaneous nerve. Next, using blunt finger dissection, the tensor fascia rey muscle was dissected off its investing fascia. The muscle was then carefully retracted laterally with a cobra retractor over the lateral neck of the femur. Next, the circumflex vessels were identified and cauterized using the AquaMantis device. The anterior hip capsule was then exposed. The capsule was then opened and an inverted T fashion. Cobra retractors were then placed intracapsularly. The retractors were maintained intracapsular throughout the procedure. The proximal femur was then visualized. Fluoroscopic x-rays were then taken in order to evaluate the preoperative leg lengths. A small amount of traction was placed on the leg. The femoral neck was then osteotomized at the appropriate level above the lesser trochanter. A small wedge of bone was then removed from the remaining femoral head. Next, using a corkscrew the femoral head was removed from the acetabulum. On gross visual inspection, the femoral head had complete loss of articular cartilage and multiple periarticular osteophytes. The femoral head was then measured. Attention was then turned to the acetabulum. The acetabulum was exposed and any remaining labrum was excised. Sequential reaming of the acetabulum was performed using fluoroscopic guidance until there was a good bed of bleeding cancellus bone. When the appropriate size was reached, a trial was then placed. The position and fit of the trial was checked with fluoroscopy. The trial was then removed. Then, using fluoroscopic guidance, the final implant was impacted at 20 of anteversion and 40 of abduction, and fully seated in the acetabulum. 2 screws were then placed in the acetabulum. Again fluoroscopy was used to check position of the screws. Next, the liner was then impacted, with a 20 elevated liner located in the anterior superior quadrant. Component locking was confirmed. Attention was then directed to the femur. With the aid of the [place] table, the femur was externally rotated to approximately 130, extended, and adducted under the opposite leg. A side hook was then placed under the proximal femur, and the side hook elevator was used to elevate the proximal femur while releasing the capsule. Retractors were then placed. A capsular release was performed, as well as a release of the conjoined tendon, which afforded excellent visualization of the proximal femur. Next, a box osteotome was used to lateralize the proximal femur. A board handler was then used to locate the femoral canal. Sequential broaching was then performed with appropriate size which afforded excellent fixation in the proximal femur. A trial was then placed with appropriate head and neck, and the hip was gently reduced with the aid of the [place] table. Fluoroscopy was then used to check position of the components, as well as to evaluate the leg lengths and offset. The leg lengths and offset were measured as closely as possible to ensure stability of the hip. The hip was then gently dislocated and the trials were then removed. Final implants were then impacted and the hip was again reduced. Final fluoroscopic x-rays confirmed that the components were in anatomic position. The leg lengths and offset were measured and were found to coincide with the trial measurements. The hip was also taken through range of motion, and found to be stable. The hip was then copiously irrigated with antibiotic solution with pulsatile lavage. The hip was then irrigated with Irrisept solution. The soft tissues were then injected with a ropivacaine solution. A second dose of 1 g of Tranexamic acid was also given intravenously. The fascia was then closed with 2-0 strata fix suture. The subcutaneous tissue was closed with 3-0 Vicryl. The subcuticular tissue was closed with 3-0 strata fix suture. The skin was then closed with Exofin skin glue. After the glue and dried, and Optifoam silver impregnated dressing was applied. The patient was then transferred to the recovery room in stable condition. The itinerant teacher assistant LALO Webb was required due to the complexity of surgery, and the need for skilled surgical lead for positioning, draping, exposure, retraction, and closure of the wound.
--- NOTE | 2022-03-12 14:44 | XR ---
EXAMINATION TYPE: XR Hip Limited RT DATE OF EXAM: 03/12/2022 COMPARISON: NONE HISTORY: R ANTERIOR HIP REPLACEMENT TECHNIQUE: 2 views submitted FINDINGS: There is no evidence of erosive change or acute fracture. IMPRESSION: 1. No evidence of acute fracture or dislocation.
[2022-03-12 15:09] VITALS: RESP 16
--- NOTE | 2022-03-12 15:44 | FL ---
EXAMINATION TYPE: FL guidance operating room DATE OF EXAM: 03/12/2022 FLUOROSCOPY Fluoroscopy time of 57 seconds was used during right anterior hip replacement. 3 image/s document/s the procedure.
--- NOTE | 2022-03-12 16:14 | XR ---
EXAMINATION TYPE: XR Hip Limited RT DATE OF EXAM: 03/12/2022 4:10 PM INDICATION: Patient age:Female; 56 years old; Reason for study: POST HIP SURGERY, ASSESS SURGICAL ALIGNMENT; PHH. COMPARISON: Right hip fluoroscopic images from 03/10/2022. TECHNIQUE: The right hip was examined in frontal projection. FINDINGS: Post surgical changes from right hip arthroplasty. Hardware appears intact with appropriate alignment. No acute fracture or dislocation. IMPRESSION: Post surgical changes from right hip arthroplasty. Hardware appears intact with appropriate alignment .
[2022-03-12] MEDS ORDERED: HYDROmorphone 0.5 MG/0.5 ML SYRINGE IVP ONE (16:23)
[2022-03-12] MEDS: SODIUM CHLORIDE 0.9% 1,000 ML IV SCH (17:20)
--- NOTE | 2022-03-12 17:32 | P.CONS ---
History of Present Illness - Reason for Consult Consult date: 03/12/22 - History of Present Illness Patient is a 56-year-old female with PMH of glaucoma, hypertension, hypothyroidism presents to [facility] for elective surgery. She underwent right total arthroplasty with a direct anterior approach. She has been admitted overnight for observation. [facility] consulted for medical management of this patient. Patient reports well-controlled pain in her right hip. Pain is 3 out of 10 in severity. Has not been on her feet yet. Has a few stairs to get into the house. Urinating freely but no bowel movement. Patient denies any headache, lower extremity edema, nausea or vomiting, fever or chills, cough, chest pain, shortness breath, palpitations. No changes in appetite or weight. She denies any dizziness, numbness/weakness/tingling of the extremities. Pertinent positives and negatives as discussed in HPI, a complete review of systems was performed and all other systems are negative. General: non toxic, no distress, appears at stated age Derm: warm, dry Head: atraumatic, normocephalic, symmetric Eyes: EOMI, no lid lag, anicteric sclera Mouth: no lip lesion, mucus membranes moist Cardiovascular: S1S2 reg, no murmur Lungs: CTA bilateral, no rhonchi, no rales , no accessory muscle use Ext: no gross muscle atrophy, no edema, no contractures Neuro: no focal neuro deficits Psych: Alert, oriented, appropriate affect #Hypertension #Glaucoma #Hypothyroidism Restart benazepril and hydrochlorothiazide. Monitor vitals, adjust medications if necessary. Restart Dorzolamide and Latanoprost eye drops. Restart [place] Thyroid. DVT prophylaxis: ASA, SCD boots Discussed with: Patient, Anticipated discharge: 1-[address]: Home A total of 25 minutes was spent on the care of this complex patient more than 50% of the time was spent in counseling and care coordination. Past Medical History Past Medical History: Eye Disorder, GERD/Reflux, Hypertension, Osteoarthritis (OA), Thyroid Disorder Additional Past Medical History / Comment(s): hiatal hernia. BILAT GLAUCOMA History of Any Multi-Drug Resistant Organisms: None Reported Past Surgical History: Cholecystectomy, Joint Replacement, Tubal Ligation, Uterine Ablation Additional Past Surgical History / Comment(s): Cyst removed from kidney. LT CLAUDIA Past Anesthesia/Blood Transfusion Reactions: Motion Sickness, Postoperative Nausea & Vomiting (PONV) Additional Past Anesthesia/Blood Transfusion Reaction / Comm: Mom and brother PONV. pt states "after my upper and lower gi had general anesthetic took 1 week to get it out of system" Smoking Status: Former smoker - Past Family History Mother Family Medical History: No Reported History Medications and Allergies Home Medications Medication Instructions Recorded Confirmed Type Benazepril HCl 40 mg PO QAM 05/28/19 03/12/22 History Meloxicam 15 mg PO DAILY 05/28/19 03/12/22 History Thyroid,Pork [[place] Thyroid] 60 mg PO QAM 05/28/19 03/12/22 History traMADol HCL [Ultram] 50 mg PO Q4-6H PRN 07/31/20 03/12/22 History Dorzolamide 2% [Trusopt 2%] 1 drops BOTH EYES BID 03/08/22 03/12/22 History Latanoprost Ophth [Xalatan 0.005%] 1 drops BOTH EYES HS 03/08/22 03/12/22 History Aspirin 325 mg PO BID #60 tab 03/12/22 Rx HYDROcodone/APAP 7.5-325MG [[place] 1 - 2 tab PO Q6H PRN #32 tab 03/12/22 Rx 7.5-325] Sennosides [Senokot] 2 tab PO DAILY PRN #60 tablet 03/12/22 Rx hydroCHLOROthiazide 25 mg PO DAILY 03/12/22 03/12/22 History Allergies Allergy/AdvReac Type Severity Reaction Status Date / Time latex Allergy Rash/Hives Verified 03/12/22 11:43 Penicillins Allergy Anaphylaxis Verified 03/12/22 11:43 Physical Exam Vitals: Vital Signs Temp Pulse Resp BP Pulse Ox 03/12/22 16:15 63 16 102/51 96 03/12/22 15:58 65 16 104/53 97 03/12/22 15:43 62 16 106/52 96 03/12/22 15:28 62 16 105/58 95 03/12/22 15:13 63 16 102/56 97 03/12/22 14:54 68 16 104/58 95 03/12/22 14:39 97 F L 50 L 16 148/71 99 03/12/22 12:06 97.8 F 77 18 116/69 93 L Intake and Output 03/12/22 03/12/22 03/12/22 06:59 14:59 22:59 Intake Total 1151 350 Output Total 300 Balance 851 350 Intake: IV 1151 350 Output: Estimated Blood Loss 300 Other: Weight 83.5 kg
[2022-03-12] MEDS ORDERED: SENNOSIDES-DOCUSATE SODIUM 1 EACH TAB PO SCH (21:00)
[2022-03-12] MEDS ORDERED: LATANOPROST 0.005% OPHTH DROPS 2.5 ML BTL BOTH EYES SCH (21:00)
[2022-03-12] MEDS: ASPIRIN 325 MG TAB PO SCH (21:35)
[2022-03-12] MEDS: DORZOLAMIDE HCL 2% DROPS 10 ML BTL BOTH EYES SCH (21:35)
[2022-03-12] MEDS: HYDROcodone/APAP 7.5-325MG 1 EACH TAB PO PRN (23:23)
[2022-03-13] MEDS: SODIUM CHLORIDE 0.9% 1,000 ML IV SCH (04:36)
[2022-03-13] MEDS: LACTATED RINGERS 1,000 ML IV SCH (04:36)
[2022-03-13] MEDS ORDERED: HYDROcodone/APAP 7.5-325MG 1 EACH TAB PO PRN (07:26)
--- NOTE | 2022-03-13 07:41 | P.DS ---
Providers Date of admission: 03/13/22 06:57 Expected date of discharge: 03/13/22 Attending physician: Fred Villarreal Consults: 03/12/22 11:03 Consult Physician Routine Consulting Provider: Tova [place] Consult Reason/Comments: medical management Do you want consulting provider notified?: Yes Primary care physician: Mala Serrano, NPC - Discharge Diagnosis(es) (1) Primary osteoarthritis of right hip Current Visit: Yes Status: Acute (2) Status post total replacement of right hip Current Visit: Yes Status: Acute Hospital Course: This is a 56-year-old female with known history of degenerative arthritis of the right hip. The patient presents for evaluation. After discussion and consideration patient elects to proceed with total hip arthroplasty with direct anterior approach. The patient is seen preoperatively by primary care physician and cleared for surgery. Patient is admitted to [facility] on 03/12/2022 for total hip arthroplasty with direct anterior approach. The procedure is performed without complication or sequelae. The patient is doing well postoperatively. Labs and vital signs are stable on day of discharge. On day of discharge patient's hip incision is healing well. There is minimal erythema. There is no drainage noted at this time. There is minimal soft tissue swelling to the hip and thigh. Patient has full foot and ankle motion without difficulty or pain. Neurovascular status to the lower extremity is intact. Patient is discharged to home in good condition. Please see med rec for accurate list of home medications. Patient Condition at Discharge: Good Plan - Discharge Summary Discharge Rx Participant: Yes New Discharge Prescriptions: New Aspirin 325 mg PO BID #60 tab Sennosides [Senokot] 2 tab PO DAILY PRN #60 tablet PRN Reason: Constipation HYDROcodone/APAP 7.5-325MG [[place] 7.5-325] 1 - 2 tab PO Q6H PRN #32 tab PRN Reason: Pain No Action Thyroid,Pork [[place] Thyroid] 60 mg PO QAM Meloxicam 15 mg PO DAILY Benazepril HCl 40 mg PO QAM traMADol HCL [Ultram] 50 mg PO Q4-6H PRN PRN Reason: Pain hydroCHLOROthiazide 25 mg PO DAILY Latanoprost Ophth [Xal[place] 0.005%] 1 drops BOTH EYES HS Dorzolamide 2% [Trusopt 2%] 1 drops BOTH EYES BID Discharge Medication List Benazepril HCl 40 mg PO QAM 05/28/19 [History] Meloxicam 15 mg PO DAILY 05/28/19 [History] Thyroid,Pork [[place] Thyroid] 60 mg PO QAM 05/28/19 [History] traMADol HCL [Ultram] 50 mg PO Q4-6H PRN 07/31/20 [History] Dorzolamide 2% [Trusopt 2%] 1 drops BOTH EYES BID 03/08/22 [History] Latanoprost Ophth [Xalatan 0.005%] 1 drops BOTH EYES HS 03/08/22 [History] Aspirin 325 mg PO BID #60 tab 03/12/22 [Rx] HYDROcodone/APAP 7.5-325MG [[place] 7.5-325] 1 - 2 tab PO Q6H PRN #32 tab 03/12/22 [Rx] Sennosides [Senokot] 2 tab PO DAILY PRN #60 tablet 03/12/22 [Rx] hydroCHLOROthiazide 25 mg PO DAILY 03/12/22 [History] Follow up Appointment(s)/Referral(s): Fred Villarreal DO [Doctor of Osteopathic Medicine] - 2 Weeks Activity/Diet/Wound Care/Special Instructions: Weightbearing as tolerated with walker. Leave dressing intact. Dressing may be removed by home care nurse or by patient in 7 days. Then change dressing twice daily until follow up. May shower with initial dressing intact and after removal. If dressing become saturated, please remove. Please take aspirin 325mg twice daily for 30 days to prevent blood clots. Recommend use of compression stockings daily until follow up to help prevent swelling and blood clots. May remove at night before sleeping. Please follow-up with [facility] in 2 weeks and call with any que stions or concerns, .
[2022-03-13 07:50] VITALS: BP 102/68; PULSE 73; TEMP 98.1
[2022-03-13] MEDS ORDERED: THYROID, PORK 30 MG TAB PO SCH (09:00)
[2022-03-13] MEDS ORDERED: hydroCHLOROthiazide 25 MG TAB PO SCH (09:00)
[2022-03-13] MEDS ORDERED: lisinopriL 20 MG TAB PO SCH (09:00)
[2022-03-13] MEDS: ASPIRIN 325 MG TAB PO SCH (09:18)
[2022-03-13] MEDS: HYDROcodone/APAP 7.5-325MG 1 EACH TAB PO PRN (09:18)
[2022-03-13 10:22] LABS: Basophils # (A) 0.04 X 10*3/uL (0.00-0.10); Basophils % (A) 0.5 %; Eosinophils # (A) 0.12 X 10*3/uL (0.04-0.35); Eosinophils % (A) 1.6 %; HCT 35.4 % (37.2-46.3); HGB 11.8 g/dL (12.0-15.0); Immature Grans, Automated 0.4 %; Lymphocytes # (A) 1.62 X 10*3/uL (0.90-5.00); Lymphocytes % (A) 21.1 %; MCH 32.2 pg (27.0-32.0); MCHC 33.3 g/dL (32.0-37.0); MCV 96.7 fL (80.0-97.0); Mean Platelet Volume 10.1 fL (9.5-12.2); Monocytes # (A) 0.65 X 10*3/uL (0.20-1.00); Monocytes % (A) 8.5 %; NRBC Per 100 WBC 0 /100 WBCS (0.0-0.0); Neutrophils # (A) 5.23 X 10*3/uL (1.80-7.70); Neutrophils % (A) 67.9 %; Platelet Count 250 X 10*3/uL (140-440); RBC 3.66 X 10*6/uL (4.10-5.20); WBC 7.69 X 10*3/uL (4.50-10.00)
[2022-03-13] MEDS: DORZOLAMIDE HCL 2% DROPS 10 ML BTL BOTH EYES SCH (10:25)
--- NOTE | 2022-03-13 12:51 | P.PN ---
Subjective Progress Note Date: 03/13/22 Patient was seen and examined. No acute events overnight. BP borderline low with SBP in the 100s. She reports well controlled pain. Ambulating well with PT. General: non toxic, no distress, appears at stated age Derm: warm, dry Head: atraumatic, normocephalic, symmetric Eyes: EOMI, no lid lag, anicteric sclera Mouth: no lip lesion, mucus membranes moist Ext: no gross muscle atrophy, no edema, no contractures Neuro: no focal neuro deficits Psych: Alert, oriented, appropriate affect #Hypertension #Glaucoma #Hypothyroidism Patient advised to home Benazepril and HCTZ for SBP < 120. She has a BP monitor at home. Restart Dorzolamide and Latanoprost eye drops. Restart [place] Thyroid. Patient is medically cleared for discharge. Objective - Vital Signs Vital signs: Vital Signs Temp 98.1 F 03/13/22 07:49 Pulse 73 03/13/22 07:49 Resp 16 03/13/22 09:09 BP 102/68 03/13/22 07:49 Pulse Ox 96 03/13/22 07:49 FiO2 Intake & Output 03/12/22 03/13/22 03/13/22 18:59 06:59 18:59 Intake Total 1751 Output Total 300 Balance 1451 Weight 83.5 kg Intake: IV 1501 Oral 250 Output: Estimated Blood Loss 300 Other: Voiding Method Toilet Toilet # Voids 3 # Bowel Movements 2 - Labs CBC & Chem 7: 03/13/22 07:07 Labs: Abnormal Lab Results - Last 24 Hours (Table) 03/13/22 Range/Units 07:07 RBC 3.66 L (4.10-5.20) X 10*6/uL Hgb 11.8 L (12.0-15.0) g/dL Hct 35.4 L (37.2-46.3) % MCH 32.2 H (27.0-32.0) pg
== END 2022-03-13 13:33 | disposition home or self-care (01) ==
LOC: OR 11:30 → 4SSUR 14:39 → OR 03-13 06:51 → 4SSUR 03-13 06:57
PROVIDERS: ADMIT Orthopaedic Surgery; ATTEND Orthopaedic Surgery
DX: M16.11 Unilateral primary osteoarthritis, right hip (principal); E03.9 Hypothyroidism, unspecified; I12.9 Hypertensive chronic kidney disease with stage 1 through stage 4 chronic kidney disease, or unspecified chronic kidney disease; N18.9 Chronic kidney disease, unspecified; J44.9 Chronic obstructive pulmonary disease, unspecified; Z88.0 Allergy status to penicillin; Z79.890 Hormone replacement therapy; Z79.899 Other long term (current) drug therapy; Z87.891 Personal history of nicotine dependence; Z79.1 Long term (current) use of non-steroidal anti-inflammatories (NSAID); Z79.82 Long term (current) use of aspirin; Z91.040 Latex allergy status
CPT/HCPCS: 27130; 97161; 86900; 86901; 85025; 86850; 88300; 73501; G0378; C1776; J2250; J1100; J0690 ×3; J2405; J3010; J2795; J2370; J2704; J1170 ×2

== ENCOUNTER → 2024-06-22 | Outpatient (CLI) | payer OTHER ==
--- NOTE | 2024-06-22 11:52 | CTL ---
EXAMINATION TYPE: CT Low Dose Lung DATE OF EXAM ORDERED: 06/22/2024 COMPARISON: None CLINICAL INDICATION: Female, 59 years old with history of Z12.2 ENCNTR SCREEN, Z87.891; PHH, Former s moker. Quit x3yrs, Hx of 1PPD x28yrs., Lung cancer screening, History of Smoking/tobacco use. TECHNIQUE: Low dose computed tomography scan was performed through the chest at 1 mm thick sections a nd reconstructed images in multiple planes at 1 mm and [address] DLP: 95.[address] CTDI: 2.5 mGy Automated exposure control for dose reduction was used. CT DIAGNOSTIC QUALITY: Satisfactory FINDINGS: Nodules: Lingular 2 mm pulmonary nodule (series 6, image 40). LUNGS: COPD: Severity: None Fibrosis: Severity: None Lymph nodes: None Other findings: Right lower lobe linear scarring and/or atelectasis. RIGHT PLEURAL SPACE: Effusion: None Calcification: None Thickening: None Pneumothorax: None LEFT PLEURAL SPACE: Effusion: None Calcification: None Thickening: None Pneumothorax: None HEART: Heart Size: Normal Coronary Calcification: Small Pericardial Effusion: Trace OTHER FINDINGS: Upper abdomen: Gallbladder is surgically absent. Partial visualization of right hepatic 1.4 cm cyst. Bony thorax: None Supraclavicular region: None Other: None IMPRESSION: Lingular [address] LUNG RAD AND CT CHEST RECOMMENDATION: Lung-Rad 2 Benign Appearance or Behavior: Continue annual sc reening with LDCT in 12 months. S Modifier (other clinically significant findings): None [facility], , 06/22/2024 11:49 AM
== END | disposition home or self-care (01) ==
LOC: RADCTMAIN 10:26
PROVIDERS: ATTEND Internal Medicine
DX: Z12.2 Encounter for screening for malignant neoplasm of respiratory organs (principal); R91.1 Solitary pulmonary nodule; Z87.891 Personal history of nicotine dependence
CPT/HCPCS: 71271

== ENCOUNTER → 2024-07-01 | Outpatient (CLI) | payer OTHER ==
[2024-07-01 11:16] LABS: Basophils % (A) 1 %; Eosinophils # (A) 0.3 k/uL (0-0.7); Eosinophils % (A) 6 %; HCT 44.5 % (34.0-46.0); HGB 14.7 gm/dL (11.4-16.0); Lymphocytes # (A) 1.3 k/uL (1.0-4.8); Lymphocytes % (A) 30 %; MCH 31.7 pg (25.0-35.0); MCHC 32.9 g/dL (31.0-37.0); MCV 96.3 fL (80.0-100.0); Mean Platelet Volume 7.4; Monocytes # (A) 0.3 k/uL (0-1.0); Monocytes % (A) 6 %; Neutrophils # (A) 2.4 k/uL (1.3-7.7); Neutrophils % (A) 56 %; Platelet Count 313 k/uL (150-450); RBC 4.62 m/uL (3.80-5.40); RDW 12.7 % (11.5-15.5); WBC 4.3 k/uL (3.8-10.6)
[2024-07-01 11:53] LABS: RBC Morphology Normal
[2024-07-01 16:07] LABS: Hepatitis C IgG Antibody Nonreactive (Nonreactive)
[2024-07-01 17:24] LABS: HIV 2 AB Non-Reactive (Non-Reactive); HIV AB P24 Non-Reactive (Non-Reactive); HIV P24 AG Non-Reactive (Non-Reactive)
[2024-07-02 09:48] LABS: Protein, Total 6.5 g/dL (6.2-8.2)
== END | disposition home or self-care (01) ==
LOC: LABWHC1 10:16
PROVIDERS: ATTEND Internal Medicine
DX: D72.819 Decreased white blood cell count, unspecified (principal)
CPT/HCPCS: 36415; 83615; 84165; 85025; 86038; 86334; 86803; 87390